=== PATIENT | female | born 1950 | race Caucasian/White ===

== ENCOUNTER 2020-07-20 18:00 | Day surgery (SDC) | payer MEDICARE, BC ==
[~2020-07-20 18:00] MED LIST: EPHEDRINE 25 MG/5 ML SYRINGE ONE; Lidocaine 1% PF 5 ML VIAL ONE; PROPOFOL 200 MG/20 ML VIAL ONE
[2020-07-20] MEDS ORDERED: Clindamycin/D5W 600 mg/50 ml Premix Bag ONE (18:28)
[2020-07-20] MEDS ORDERED: Sodium Chloride 0.9% 10 ML ONE ×2 (18:41→19:52)
[2020-07-20] MEDS ORDERED: Bacitracin Zinc Ointment 30 gm TUBE ONE (18:41)
[2020-07-20] MEDS ORDERED: Bupivacaine PF 0.5% 30 ML VIAL ONE (18:41)
[2020-07-20] MEDS ORDERED: Fentanyl 100 MCG/2 ML VIAL ONE (18:45)
[2020-07-20] MEDS ORDERED: Midazolam HCl 2 mg/2 ml Vial ONE (18:45)
[2020-07-20] MEDS ORDERED: Morphine 4 MG/ML VIAL ONE (19:01)
[2020-07-20] MEDS ORDERED: Ketorolac Tromethamine 30 MG/ML VIAL ONE (20:37)
--- NOTE | 2020-07-20 21:01 | RAD ---
TWO INTRAOPERATIVE IMAGES OF THE RIGHT THUMB: Date: 07-20-2020 History: Thumb pinning and debridement. FINDINGS: Two intraoperative images demonstrate placement of a percutaneous pin into the distal phalanx of the thumb, previously noted fracture. IMPRESSION: Percutaneous pinning of the first distal phalanx as above. POS: HUNTER
[2020-07-20] MEDS ORDERED: HYDROcodone/Acetaminophen 5/325 mg Tablet ONE (21:10)
[2020-07-20] MEDS ORDERED: Non-Formulary Medication 1 EACH PO PRN (21:32)
[2020-07-20] MEDS ORDERED: HYDROcodone/Acetaminophen 5/325 mg Tablet PO PRN ×2 (21:36→21:37)
[2020-07-20] MEDS ORDERED: Morphine Sulfate 2 MG/ML SYRINGE SLOW IVP PRN (21:45)
[2020-07-20] MEDS ORDERED: Ondansetron HCl/PF 4 MG/2 ML Vial IVP PRN (21:45)
[2020-07-20] MEDS ORDERED: Promethazine HCl 25 MG/ML VIAL SLOW IVP PRN (21:45)
--- NOTE | 2020-07-21 10:22 | OP ---
DATE OF PROCEDURE: 07/20/2020 PREOPERATIVE DIAGNOSES: 1. Right thumb wound with nailbed involvement. 2. Right thumb proximal phalanx open fracture. POSTOPERATIVE DIAGNOSES: 1. Right thumb wound with nailbed involvement. 2. Right thumb proximal phalanx open fracture. PROCEDURE PERFORMED: 1. Right thumb nail wound debridement. 2. Right thumb nailbed repair. 3. Right thumb proximal phalanx open fracture debridement. 4. Right thumb proximal phalanx fracture open treatment. FINDINGS: Actual bony crush with intercalary defect involving the radial 2/3rd of the nail, but the ulnar 1/3rd distal to the intercalary defect was intact. The crushed bone was then debrided from the area that could not be stabilized or fixed. TOURNIQUET TIME: 20 minutes. The C-arm was also utilized. ESTIMATED BLOOD LOSS: 5 mL. DESCRIPTION OF PROCEDURE: After successful general endotracheal anesthesia, the limb was prepped and draped. The patient then had the time-out done appropriately, the limb exsanguinated, tourniquet inflated to 250 mmHg pressure after given 10 mL of 0.5% metacarpal joint level block. The patient then had the nailbed inspected, there was a small amount of nailbed loss, but even more marked interfragmentary crush was debrided. Once this was debrided, including material associated open fracture, using a [place] blade, curette, tenotomy scissors and irrigation with 2 L normal saline, excisional technique, down to include bone and soft tissue bed, debridement was complete. We then stabilized the fracture under C-arm with one 1.0 mm wire. We then repaired the nailbed using 6-0 chromic and then closed the small 5 mm laceration. This was done with 5-0 nylon. The tourniquet was deflated. We had excellent hemostasis and a one-second capillary refill with a pink digit. Bulky dressing was applied along with a small splint. The patient left the operating room with repaired nailbed fracture debridement, fracture open care, and wound debridement. Job ID: [id number]
== END 2020-07-20 21:45 | disposition home or self-care (01) ==
LOC: SDC/OP 18:00
PROVIDERS: ATTEND Orthopaedic Surgery Hand Surgery
PROC: 0PS Upper Bones, Reposition (ICD-10-PCS; principal; 2020-07-20)
PROC: 0HQQXZZ Repair Finger Nail, External Approach (ICD-10-PCS; 2020-07-20)
DX: S62.511A Displaced fracture of proximal phalanx of right thumb, initial encounter for closed fracture (principal); Z88.0 Allergy status to penicillin; Z91.040 Latex allergy status; Z91.048 Other nonmedicinal substance allergy status
CPT/HCPCS: 76000; J1885; J2250; J2270; J2704; J3010; J3490; S0020

== ENCOUNTER 2024-03-21 14:29 | Outpatient (CLI) | payer MEDICARE | END 2024-03-21 14:30 | disposition home or self-care (01) | LOC: SCSRAD 14:29 | PROVIDERS: ATTEND Nurse Practitioner Family | DX: S99.912A Unspecified injury of left ankle, initial encounter (principal); S69.92XA Unspecified injury of left wrist, hand and finger(s), initial encounter; M77.32 Calcaneal spur, left foot ==

== ENCOUNTER 2024-05-27 17:12 | Outpatient (CLI) | payer MEDICARE | END 2024-05-27 17:13 | disposition home or self-care (01) | LOC: SCSRAD 17:12 | PROVIDERS: ATTEND Family Medicine | DX: S99.911A Unspecified injury of right ankle, initial encounter (principal); S82.831A Other fracture of upper and lower end of right fibula, initial encounter for closed fracture ==